=== PATIENT | female | born 1990 | race American Indian/Alaskan Native ===

== ENCOUNTER 2016-11-12 21:20 | Emergency (ER) | payer MEDICAID ==
[2016-11-12 21:37] VITALS: BP 140/100
[2016-11-12 22:47] LABS: Bacteria,Urine 1+ /HPF (Negative); Bilirubin,Urine NEG (Negative); Blood,Urine SM (Negative); Ketones,Urine NEG (Negative); Leukocyte Esterase,Urine LG (Negative); Nitrite,Urine NEG (Negative); Protein,Urine <15 mg/dL mg/dL (Negative); Urobilinogen,Urine < 2.0 mg/dL (<2.0)
--- NOTE | 2016-11-12 23:28 | Emergency Department Report ---
ED Female HPI - General Chief complaint: Urogenital-Female Stated complaint: ABD PAIN Time Seen by Provider: 11/12/16 23:09 Source: patient Mode of arrival: Ambulatory Limitations: No Limitations - History of Present Illness MD Complaint: vaginal discharge Onset/Timin -: Sudden, week(s) Severity: moderate Severity scale (0 -10): 3 Quality: other (thick white) Consistency: constant Improves with: none Worsens with: none Are you Now?: No Last Menstrual Period: 11/09/16 EDC: 08/16/17 Associated Symptoms: vaginal discharge. denies: loss of appetite, dysuria, shortness of breath, weakness - Related Data Previous Rx's Medication Instructions Recorded Last Taken Type Cyclobenzaprine [Flexeril] 10 mg PO TID PRN #12 tablet 03/21/13 Unknown Rx Hydrocodone Bit/Acetaminophen 1 each PO Q4-6H PRN #10 tablet 03/21/13 Unknown Rx [Lortab 5-500 Tablet] Ibuprofen [Motrin 800 MG tab] 800 mg PO TID #30 tablet 03/21/13 Unknown Rx methylPREDNISolone [Medrol Dose 4 mg PO DAILY #1 pack 03/21/13 Unknown Rx Dov] traMADol [Ultram 50 MG tab] 50 mg PO Q6HR PRN #16 tablet 06/05/14 Unknown Rx Fluconazole [Diflucan TAB] 150 mg PO ONCE #1 tablet 11/12/16 Unknown Rx metroNIDAZOLE [Flagyl] 500 mg PO Q12HR #20 tab 11/12/16 Unknown Rx Allergies Allergy/AdvReac Type Severity Reaction Status Date / Time No Known Allergies Allergy Unverified 03/21/13 10:31 ED Review of Systems ROS: Stated complaint: ABD PAIN Other details as noted in HPI Constitutional: denies: chills, fever Eyes: denies: eye pain, eye discharge, vision change ENT: denies: ear pain, throat pain Respiratory: denies: cough, shortness of breath, wheezing Cardiovascular: denies: chest pain, palpitations Endocrine: no symptoms reported Gastrointestinal: denies: abdominal pain, nausea, diarrhea Genitourinary: discharge. denies: urgency, dysuria Musculoskeletal: denies: back pain, joint swelling, arthralgia Skin: denies: rash, lesions Neurological: denies: headache, weakness, paresthesias Psychiatric: denies: anxiety, depression ED Past Medical Hx - Past Medical History Previous Medical History?: Yes Additional medical history: PCOS - Surgical History Past Surgical History?: No - Social History Smoking Status: Never Smoker Substance Use Type: None - Medications Home Medications: Home Medications Medication Instructions Recorded Confirmed Last Taken Type Cyclobenzaprine [Flexeril] 10 mg PO TID PRN #12 tablet 03/21/13 Unknown Rx Hydrocodone Bit/Acetaminophen 1 each PO Q4-6H PRN #10 tablet 03/21/13 Unknown Rx [Lortab 5-500 Tablet] Ibuprofen [Motrin 800 MG tab] 800 mg PO TID #30 tablet 03/21/13 Unknown Rx methylPREDNISolone [Medrol Dose 4 mg PO DAILY #1 pack 03/21/13 Unknown Rx Dov] traMADol [Ultram 50 MG tab] 50 mg PO Q6HR PRN #16 tablet 06/05/14 Unknown Rx Fluconazole [Diflucan TAB] 150 mg PO ONCE #1 tablet 11/12/16 Unknown Rx metroNIDAZOLE [Flagyl] 500 mg PO Q12HR #20 tab 11/12/16 Unknown Rx ED Physical Exam - General Limitations: No Limitations General appearance: alert, in no apparent distress - Head Head exam: Present: atraumatic, normocephalic - Eye Eye exam: Present: normal appearance, PERRL, EOMI - ENT ENT exam: Present: mucous membranes moist - Neck Neck exam: Present: normal inspection - Respiratory Respiratory exam: Present: normal lung sounds bilaterally. Absent: respiratory distress - Cardiovascular Cardiovascular Exam: Present: regular rate, normal rhythm. Absent: systolic murmur, diastolic murmur, rubs, gallop - GI/Abdominal GI/Abdominal exam: Present: soft, normal bowel sounds - Rectal Rectal exam: Present: deferred - External exam: Present: other (exam deferred per patient) - Extremities Exam Extremities exam: Present: normal inspection - Back Exam Back exam: Present: normal inspection - Neurological Exam Neurological exam: Present: alert, oriented X3 - Psychiatric Psychiatric exam: Present: normal affect, normal mood - Skin Skin exam: Present: warm, dry, intact, normal color. Absent: rash ED Course Vital Signs 11/12/16 21:30 Temperature 99.1 F Pulse Rate 95 H Respiratory 16 Rate Blood Pressure 140/100 [Right] O2 Sat by Pulse 100 Oximetry ED Medical Decision Making - Medical Decision Making pt endorses post GC contact from called back by [employer] to get tx for same with positive cultures, pt s/p miscarriage 2 months age lMP 1 week ago pt denies other contact, request tx for GC, will follow up with [employer] next week, plan : Rocephin , azithromycin , flagyl and follow up with [employer] as scheduled. pt denies Vaginal exam and labs at this time. Critical care attestation.: If time is entered above; I have spent that time in minutes in the direct care of this critically ill patient, excluding procedure time. ED Disposition Clinical Impression: STD exposure Disposition: DC-01 TO HOME OR SELFCARE Is pt being admited?: No Does the pt Need Aspirin: No Condition: Good Instructions: Sexually Transmitted Diseases (ED) Prescriptions: Fluconazole [Diflucan TAB] 150 mg PO ONCE #1 tablet metroNIDAZOLE [Flagyl] 500 mg PO Q12HR #20 tab Referrals: PRIMARY CARE, [Primary Care Provider] - 3-5 Days Forms: Work/School Release Form(ED) Time of Disposition: 23:31
[2016-11-12] MEDS ORDERED: ZITHROMAX PO ONE (23:30)
[2016-11-12] MEDS ORDERED: ROCEPHIN IM ONE (23:30)
[2016-11-12] MEDS ORDERED: XYLOCAINE 1% MPF 5 mL INFILTRATI ONE (23:30)
== END 2016-11-12 23:51 | disposition home or self-care (01) ==
LOC: ED 21:20
DX: N89.8 Other specified noninflammatory disorders of vagina (principal); Z20.2 Contact with and (suspected) exposure to infections with a predominantly sexual mode of transmission; E28.2 Polycystic ovarian syndrome
CPT/HCPCS: 81001; 81025; 96372; 99283; J0696

== ENCOUNTER 2017-12-20 22:12 | Emergency (ER) | payer MEDICAID ==
[2017-12-20 22:34] VITALS: BP 111/68
[2017-12-20] MEDS ORDERED: TYLENOL PO ONE (23:11)
== END 2017-12-20 23:28 | disposition left against medical advice (07) ==
LOC: ED 22:12
DX: R03.0 Elevated blood-pressure reading, without diagnosis of hypertension (principal); Z53.21 Procedure and treatment not carried out due to patient leaving prior to being seen by health care provider